=== PATIENT | female | born 1980 | race American Indian/Alaskan Native ===

== ENCOUNTER 2018-07-11 10:31 | Outpatient (CLI) | payer BC ==
--- NOTE | 2018-07-12 10:08 | Mammography Report ---
BILATERAL DIGITAL SCREENING MAMMOGRAM with CAD: 07/11/18 10:31:00 CLINICAL: Routine screening.Previous left benign surgical biopsy. COMPARISON:None available. FINDINGS: The breasts are almost entirely fatty.Mild left inner posterior benign postsurgical scar with dystrophic calcifications. No mass, architectural distortion or suspicious calcifications. IMPRESSION: No mammographic evidence of malignancy. BI-RADS CATEGORY: 2 - - Benign RECOMMENDATION: Routine mammographic screening in one year. COMMENT: Patient follow-up letters are generated by our [employer] application.
== END 2018-07-11 10:32 | disposition home or self-care (01) ==
LOC: MAMMO 10:31
DX: Z12.31 Encounter for screening mammogram for malignant neoplasm of breast (principal)
CPT/HCPCS: 77067

== ENCOUNTER 2018-10-12 15:13 | Outpatient (CLI) | payer BC ==
--- NOTE | 2018-10-12 16:24 | XRay Report ---
FINAL REPORT PROCEDURE: XR KNEE 3V LT TECHNIQUE: AP, oblique and lateral views were obtained. HISTORY: LEFT KNEE PAIN COMPARISON: No prior studies are available for comparison. FINDINGS: No fracture or dislocation is visualized. Minimal joint fluid visualized. No significant effusion is seen. Bone density appears normal. Joint spaces are well maintained. No radiopaque foreign bodies are seen IMPRESSION: No acute abnormalities are identified
== END 2018-10-12 15:14 | disposition home or self-care (01) ==
LOC: XRAY 15:13
DX: M25.562 Pain in left knee (principal)

== ENCOUNTER 2019-01-05 09:05 | Outpatient (CLI) | payer BC ==
[2019-01-05 09:32] LABS: Basophils # (Auto) 0.1 K/mm3 (0.0-0.1); Basophils % (Auto) 0.8 % (0.0-1.8); Eosinophils # (Auto) 0.4 K/mm3 (0.0-0.4); Eosinophils % (Auto) 5.3 % (0.0-4.3); Hematocrit 39.6 % (30.3-42.9); Lymphocytes # (Auto) 2.4 K/mm3 (1.2-5.4); Lymphocytes % (Auto) 35.8 % (13.4-35.0); Mean Corpuscular HGB Conc 33 % (30-34); Mean Corpuscular Volume 90 fl (79-97); Monocytes # (Auto) 0.9 K/mm3 (0.0-0.8); Monocytes % (Auto) 13.3 % (0.0-7.3); Platelet Count 416 K/mm3 (140-440); Red Blood Count 4.42 M/mm3 (3.65-5.03); Red Cell Distribution Width 14.7 % (13.2-15.2)
[2019-01-05 09:47] LABS: Alanine Aminotransferase 9 units/L (7-56); Albumin 3.6 g/dL (3.9-5); BUN/Creatinine Ratio 13; Blood Urea Nitrogen 8 mg/dL (7-17); Calcium 8.4 mg/dL (8.4-10.2); Hemolysis Index 2
== END 2019-01-05 09:06 | disposition home or self-care (01) ==
LOC: LAB 09:05
PROVIDERS: ATTEND Internal Medicine Hematology & Oncology
DX: Z85.72 Personal history of non-Hodgkin lymphomas (principal); I10 Essential (primary) hypertension
CPT/HCPCS: 36415; 80053; 85025

== ENCOUNTER 2019-02-21 10:42 | Outpatient (CLI) | payer BC ==
--- NOTE | 2019-02-21 16:08 | Magnetic Resonance Report ---
MRI LEFT KNEE WITHOUT CONTRAST: 02/21/19 CLINICAL: Knee pain. TECHNIQUE: Sagittal proton density fat and gradient T2*, sagittal proton density, coronal T1 and sagittal, coronal and axial proton density fat-sat sequences on a 1.5 Yi magnet. FINDINGS: The menisci are intact. The cruciate ligaments and collateral ligaments are intact. A small knee joint effusion with fluid in the suprapatellar bursa in the medial and lateral joints. There is slightly greater fluid in the lateral joint and a fluid collection of the lateral anterior thigh communicates with the suprapatellar bursa. It measures at least 6 x 2.7 x 1.0 cm. No popliteal cyst. Marrow edema of the inferior patella with hypointensity on T1 and hyperintensity on T2 fat-sat. No fracture. The patellar cartilage is intact and measures 4.4 mm maximum thickness. Intact patellar tendon and retinaculum. The medial and lateral femoral cartilage are intact. The posterolateral corner structures including the popliteus tendon are intact. A medullary lesion of the proximal fibula measures approximately 2.0 x 1.3 x 1.0 cm and 2 similar lesions of the distal femur measure 1.4 x 0.7 x 1.0 cm and 0.3 x 0.3 x 0.2 cm. The larger lesion is in the midline distal femur and a smaller lesion is medial in the supracondylar area. The muscles have normal signal. IMPRESSION: 1. Normal patellar cartilage with no evidence of chondromalacia patellae. 2. No meniscal or ligamentous injury. 3. Knee joint effusion and a larger soft tissue fluid collection of the lateral distal thigh. 4. Benign enchondromas of the distal femur and proximal fibula. 5. Suspect bone contusion of the inferior patella.
== END 2019-02-21 10:43 | disposition home or self-care (01) ==
LOC: MRI 10:42
PROVIDERS: ATTEND Orthopaedic Surgery
DX: M25.462 Effusion, left knee (principal); I10 Essential (primary) hypertension; M19.90 Unspecified osteoarthritis, unspecified site
CPT/HCPCS: 73721

== ENCOUNTER 2019-07-12 14:46 | Outpatient (CLI) | payer BC ==
--- NOTE | 2019-07-12 16:32 | Mammography Report ---
DIGITAL SCREENING MAMMOGRAM WITH CAD, 07/12/2019 INDICATION: Routine screening mammography. TECHNIQUE: Digital bilateral 2D mammography was obtained in the craniocaudal and mediolateral obliq ue projections. This examination was interpreted with the benefit of Computer-Aided Detection analysi s. COMPARISON: 07/11/2018 FINDINGS: Breast Density: The breasts are almost entirely fatty. There is no evidence of dominant mass, suspicious calcifications or architectural distortion in eithe r breast. Left inner posterior partially calcified postsurgical scar. IMPRESSION: No mammographic evidence of malignancy. Follow up recommendation: Routine yearly BI-RADS Category 2: Benign. A "normal" or negative report should not discourage follow up or biopsy of a clinically significant f inding. A written summary of these findings will be mailed to the patient. The patient will be entered into a mammography reporting system which will generate a reminder letter for the patient's next appointmen t at the appropriate interval. The [employer] recommends yearly mammograms starting at age 40 and continuing as l desmond as a woman is in good health. Breast MRI is recommended for women with an approximate 20-25% or greater lifetime risk of breast cancer, including women with a strong family history of breast or ova lisa cancer or who have been treated for Hodgkin's disease. Signer Name: Humberto Causey MD Signed: 07/12/2019 4:27 PM Workstation Name: [id number]
== END 2019-07-12 14:47 | disposition home or self-care (01) ==
LOC: MAMMO 14:46
PROVIDERS: ATTEND Physician Assistant Medical
DX: Z12.31 Encounter for screening mammogram for malignant neoplasm of breast (principal); I10 Essential (primary) hypertension; M19.90 Unspecified osteoarthritis, unspecified site
CPT/HCPCS: 77067

== ENCOUNTER 2019-10-26 13:19 | Outpatient (CLI) | payer BC ==
[2019-10-26 13:47] LABS: Hematocrit 39.6 % (30.3-42.9); Hemoglobin 13.1 gm/dl (10.1-14.3); Mean Corpuscular HGB Conc 33 % (30-34); Mean Corpuscular Volume 88 fl (79-97); Platelet Count 510 K/mm3 (140-440); Red Blood Count 4.48 M/mm3 (3.65-5.03); Red Cell Distribution Width 13.9 % (13.2-15.2)
[2019-10-26 14:12] LABS: Alanine Aminotransferase 11 units/L (7-56); Albumin 3.7 g/dL (3.9-5); BUN/Creatinine Ratio 13; Blood Urea Nitrogen 8 mg/dL (7-17); Calcium 8.7 mg/dL (8.4-10.2); Hemolysis Index 4
[2019-10-29 09:03] LABS: Chol/HDL Ratio 3.66 %
== END 2019-10-26 13:20 | disposition home or self-care (01) ==
LOC: LAB 13:19
DX: Z00.00 Encounter for general adult medical examination without abnormal findings (principal); Z11.4 Encounter for screening for human immunodeficiency virus [HIV]; D51.9 Vitamin B12 deficiency anemia, unspecified; E55.9 Vitamin D deficiency, unspecified; R73.09 Other abnormal glucose; E03.9 Hypothyroidism, unspecified
CPT/HCPCS: 36415; 80053; 82306; 82607; 84443; 85027; 86592

== ENCOUNTER 2020-03-26 08:57 | Outpatient (CLI) | payer BC ==
[2020-03-26 09:19] LABS: Hematocrit 41.5 % (30.3-42.9); Hemoglobin 13.6 gm/dl (10.1-14.3); Mean Corpuscular HGB Conc 33 % (30-34); Mean Corpuscular Volume 89 fl (79-97); Platelet Count 416 K/mm3 (140-440); Red Blood Count 4.65 M/mm3 (3.65-5.03); Red Cell Distribution Width 14.2 % (13.2-15.2)
[2020-03-26 09:43] LABS: Alanine Aminotransferase 13 units/L (7-56); BUN/Creatinine Ratio 14; Blood Urea Nitrogen 11 mg/dL (7-17); Calcium 9.1 mg/dL (8.4-10.2); Chol/HDL Ratio 3.35 %; HDL Cholesterol 60 mg/dL (40-59); Hemolysis Index 2; LDL Cholesterol,Direct 145 mg/dL (50-130)
[2020-03-30 13:09] LABS: Vitamin D, 25-OH, D2 <4 ng/mL
== END 2020-03-26 08:58 | disposition home or self-care (01) ==
LOC: LAB 08:57
PROVIDERS: ATTEND Internal Medicine
DX: Z00.00 Encounter for general adult medical examination without abnormal findings (principal); I10 Essential (primary) hypertension; R42 Dizziness and giddiness; R73.09 Other abnormal glucose
CPT/HCPCS: 36415; 80053; 80061; 82306; 82607; 83036; 84443; 85027

== ENCOUNTER 2020-06-04 14:54 | Outpatient (CLI) | payer BC ==
--- NOTE | 2020-06-04 16:17 | XRay Report ---
LUMBOSACRAL SPINE 2 VIEWS INDICATION: low back pain. COMPARISON: None. IMPRESSION: Normal alignment. No significant discogenic DJD or facet arthropathy. No acute osseous or soft tissue abnormality. Signer Name: Devang Harrison Jr, MD Signed: 06/04/2020 4:12 PM Workstation Name: [id number]
--- NOTE | 2020-06-04 16:17 | XRay Report ---
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 COMPARISON: None. IMPRESSION: There is straightening of the normal lordosis which could be positional or secondary to muscular spasm. There is normal alignment otherwise. Mild degenerative disc narrowing and anterior sp urring is identified at C4-5, C5-6 and C6-7. The facet joints are unremarkable. No acute osseous or soft tissue abnormality. Signer Name: Devang Harrison Jr, MD Signed: 06/04/2020 4:13 PM Workstation Name: [id number]
== END 2020-06-04 14:55 | disposition home or self-care (01) ==
LOC: XRAY 14:54
PROVIDERS: ATTEND Chiropractor
DX: M47.812 Spondylosis without myelopathy or radiculopathy, cervical region (principal); M48.02 Spinal stenosis, cervical region; M46.02 Spinal enthesopathy, cervical region; M99.01 Segmental and somatic dysfunction of cervical region
CPT/HCPCS: 72040; 72100

== ENCOUNTER 2020-07-14 14:24 | Outpatient (CLI) | payer BC ==
--- NOTE | 2020-07-15 10:10 | Mammography Report ---
DIGITAL SCREENING MAMMOGRAM WITH CAD, 07/15/2020 INDICATION: Routine screening mammography. TECHNIQUE: Digital bilateral 2D mammography was obtained in the craniocaudal and mediolateral obliq ue projections. This examination was interpreted with the benefit of Computer-Aided Detection analysi s. COMPARISON: 07/12/2019, 07/11/2018 FINDINGS: Breast Density: The breasts are almost entirely fatty. There is no evidence of dominant mass, suspicious calcifications or architectural distortion in eithe r breast. IMPRESSION: Follow up recommendation: Routine yearly BI-RADS Category 1: Negative. A "normal" or negative report should not discourage follow up or biopsy of a clinically significant f inding. A written summary of these findings will be mailed to the patient. The patient will be entered into a mammography reporting system which will generate a reminder letter for the patient's next appointmen t at the appropriate interval. The [employer] recommends yearly mammograms starting at age 40 and continuing as l desmond as a woman is in good health. Breast MRI is recommended for women with an approximate 20-25% or greater lifetime risk of breast cancer, including women with a strong family history of breast or ova lisa cancer or who have been treated for Hodgkin's disease. Signer Name: Landen Raya MD Signed: 07/15/2020 10:05 AM Workstation Name: [id number]
== END 2020-07-14 14:25 | disposition home or self-care (01) ==
LOC: MAMMO 14:24
PROVIDERS: ATTEND Internal Medicine
DX: Z12.31 Encounter for screening mammogram for malignant neoplasm of breast (principal)
CPT/HCPCS: 77067

== ENCOUNTER 2020-09-18 09:43 | Outpatient (CLI) | payer BC ==
[2020-09-18 10:20] LABS: Basophils # (Auto) 0.1 K/mm3 (0.0-0.1); Basophils % (Auto) 0.8 % (0.0-1.8); Eosinophils # (Auto) 0.4 K/mm3 (0.0-0.4); Eosinophils % (Auto) 4.8 % (0.0-4.3); Hematocrit 41.6 % (30.3-42.9); Hemoglobin 14.1 gm/dl (10.1-14.3); Lymphocytes # (Auto) 2.4 K/mm3 (1.2-5.4); Lymphocytes % (Auto) 32.3 % (13.4-35.0); Mean Corpuscular HGB Conc 34 % (30-34); Mean Corpuscular Volume 90 fl (79-97); Monocytes # (Auto) 0.8 K/mm3 (0.0-0.8); Monocytes % (Auto) 10.5 % (0.0-7.3); Platelet Count 441 K/mm3 (140-440); Red Cell Distribution Width 14.5 % (13.2-15.2)
[2020-09-18 10:36] LABS: Alanine Aminotransferase 13 units/L (7-56); Albumin 3.8 g/dL (3.9-5); BUN/Creatinine Ratio 13; Blood Urea Nitrogen 10 mg/dL (7-17); Calcium 8.8 mg/dL (8.4-10.2); Chol/HDL Ratio 3.29 %; HDL Cholesterol 57 mg/dL (40-59); Hemolysis Index 2; LDL Cholesterol,Direct 128 mg/dL (50-130)
[2020-09-22 13:50] LABS: Vitamin D, 25-OH, D2 <4 ng/mL
== END 2020-09-18 09:44 | disposition home or self-care (01) ==
LOC: LAB 09:43
PROVIDERS: ATTEND Internal Medicine
DX: Z00.00 Encounter for general adult medical examination without abnormal findings (principal); I10 Essential (primary) hypertension
CPT/HCPCS: 36415; 80053; 80061; 82306; 82607; 82747; 83036; 85025

== ENCOUNTER 2020-12-18 09:46 | Outpatient (CLI) | payer BC ==
[2020-12-18 10:09] LABS: Hematocrit 41.1 % (30.3-42.9); Hemoglobin 13.8 gm/dl (10.1-14.3); Mean Corpuscular HGB Conc 34 % (30-34); Mean Corpuscular Volume 90 fl (79-97); Platelet Count 445 K/mm3 (140-440); Red Blood Count 4.58 M/mm3 (3.65-5.03); Red Cell Distribution Width 13.9 % (13.2-15.2)
[2020-12-18 10:30] LABS: Alanine Aminotransferase 11 units/L (7-56); Albumin 3.8 g/dL (3.9-5); Blood Urea Nitrogen 9 mg/dL (7-17); Calcium 9.3 mg/dL (8.4-10.2); Chol/HDL Ratio 3.38 %; HDL Cholesterol 55 mg/dL (40-59); Hemolysis Index 4; LDL Cholesterol,Direct 132 mg/dL (50-130)
[2020-12-18 10:32] LABS: BUN/Creatinine Ratio 13
== END 2020-12-18 09:47 | disposition home or self-care (01) ==
LOC: LAB 09:46
PROVIDERS: ATTEND Internal Medicine
DX: Z11.4 Encounter for screening for human immunodeficiency virus [HIV] (principal); I10 Essential (primary) hypertension; E55.9 Vitamin D deficiency, unspecified; E66.01 Morbid (severe) obesity due to excess calories; R73.09 Other abnormal glucose
CPT/HCPCS: 36415; 80053; 80061; 82306; 83036; 85027; 86689

== ENCOUNTER 2021-01-15 10:27 | Outpatient (CLI) | payer BC ==
--- NOTE | 2021-01-15 15:13 | PET Report ---
PET CT Indication: Non-Hodgkin lymphoma. Increased swelling and fullness of the neck. Technique: A total of 13.403 mCi F-18 FDG injected IV per protocol into the right arm at 11:44 AM wit h a scan time of 12:31 PM on the same day. CT was utilized for dose attenuation and anatomic localiza tion. The patient's weight is 298 pounds. The fasting blood glucose measured 44 mg/dL.. The scan occu rred from the skull base to the upper thighs. Comparison: No pertinent prior exams available Findings: No abnormal radiotracer uptake is identified within the head/neck, chest, abdomen or pelvis . There is expected GI and excretion of radiotracer. No abnormal osseous uptake is appreciated. Th ere is a multicystic lesion arising from the right ovary. The largest cyst measures about 3.8 cm in d iameter but does not appear to demonstrate any increased hypermetabolic uptake. Borderline cardiomega ly. IMPRESSION: No hypermetabolic activity identified, as above. Abnormal multicystic lesion identified a rising from the region of the right adnexa measuring up to 3.8 cm in diameter. Recommend dedicated pe lvic ultrasound with Doppler for further evaluation. Signer Name: Keven Levi MD Signed: 01/15/2021 3:09 PM Workstation Name: [id number]
== END 2021-01-15 10:28 | disposition home or self-care (01) ==
LOC: PET 10:27
PROVIDERS: ATTEND Internal Medicine Hematology & Oncology
DX: N83.291 Other ovarian cyst, right side (principal); I51.7 Cardiomegaly; Z85.72 Personal history of non-Hodgkin lymphomas
CPT/HCPCS: 78815; 82962; A9552

== ENCOUNTER 2021-01-30 10:05 | Outpatient (CLI) | payer BC ==
--- NOTE | 2021-01-30 13:26 | Ultrasound Report ---
ULTRASOUND PELVIS INDICATION / CLINICAL INFORMATION: PELVIC PAIN. TECHNIQUE: Transabdominal. Transvaginal Duplex Color Doppler used: Yes. COMPARISON: PET scan 01/15/2021. FINDINGS: UTERUS: Prior hysterectomy. RIGHT ADNEXA: The right ovary measures 5.4 x 5.9 x 3.5 cm. There is a 4.8 cm cystic lesion within the right ovary. Not well evaluated due to overlying bowel gas. Normal color Doppler blood flow. LEFT ADNEXA: The left ovary is obscured by overlying bowel gas. No significant abnormality of the lef t adnexa. URINARY BLADDER: No significant abnormality. FREE FLUID: None. ADDITIONAL FINDINGS: None. IMPRESSION: 1. Right ovarian cyst, poorly visualized on this examination secondary to technical difficulty. Consi lala further evaluation, as warranted. Scribed by: Norah Allen RDMS, RVT Scribed: 01/30/2021 12:05 PM Signer Name: Naldo Carballo MD Signed: 01/30/2021 1:21 PM Workstation Name: [id number]
== END 2021-01-30 10:06 | disposition home or self-care (01) ==
LOC: US 10:05
PROVIDERS: ATTEND Obstetrics & Gynecology
DX: N83.291 Other ovarian cyst, right side (principal)
CPT/HCPCS: 76830; 76856

== ENCOUNTER 2021-09-07 11:20 | Outpatient (CLI) | payer OTHER ==
--- NOTE | 2021-09-08 10:10 | Mammography Report ---
BILATERAL DIGITAL SCREENING MAMMOGRAM WITH CAD WITH TOMOSYNTHESIS HISTORY: Screening mammogram. TECHNIQUE: Routine digital mammographic imaging performed. This examination was interpreted with denisse zayas benefit of Computer-aided Detection analysis. Tomosynthesis images were acquired and reviewed. COMPARISON: 07/14/2020, 07/12/2019, 07/11/2018. FINDINGS: Breast Density: scattered fibroglandular appearance of the breast tissue. Digital CC and MLO views demonstrate no mammographic evidence of malignancy. Small grouping of calci fications in the right breast are stable, felt to be dermal given their far superior location on the tomosynthesis images. Coarse hyperdensity within the posterior left breast on the MLO view is stable compared to multiple prior years. This may represent site of prior port. IMPRESSION: No mammographic evidence of malignancy. If the clinical examination remains stable, recommend bilate ral mammogram in approximately one year. BIRADS 2: Benign Finding(s). FURTHER INFORMATION: According to the [employer], yearly mammograms are recommend ed starting at age 40 and continuing as long as a woman is in good health. Clinical Breast Exams shou ld be part of a periodic health exam-about every 3 years for women in their 20s and 30s and every yea r for women 40 and over. Breast self exam is an option for women starting in their 20s. Any breast ch melania noted on a breast self exam should be reported promptly to the patient's healthcare provider. [place] MRI is recommended for women with an approximately 20-25% or greater lifetime risk of breast can cer, including women with a strong family history of breast or ovarian cancer and women who have been treated for Hodgkin's disease. A negative Mammography report should not discourage follow up or biopsy of a clinically significant f inding and/or abnormality. Dense breast tissue may obscure small neoplasms. The patient will be entered into a reminder system with a target due date for the next screening mamm ogram. Signer Name: Jevon Vaughn MD Signed: 09/08/2021 10:06 AM Workstation Name: [id number]
== END 2021-09-07 11:21 | disposition home or self-care (01) ==
LOC: SPVWC 11:20
PROVIDERS: ATTEND Internal Medicine
DX: Z12.31 Encounter for screening mammogram for malignant neoplasm of breast (principal); N64.89 Other specified disorders of breast
CPT/HCPCS: 77063; 77067

== ENCOUNTER 2022-06-03 10:08 | Outpatient (CLI) | payer OTHER ==
--- NOTE | 2022-06-03 15:56 | Fluoroscopy Report ---
UPPER GI HISTORY: E66.01. TECHNIQUE: Single and double contrast barium technique utilized to evaluate the esophagus, stomach, and duodenal C-loop. FINDINGS: To begin the exam, swallowing was evaluated in the lateral position under direct fluorosco py. Swallowing was normal. No mucosal irregularity, mass, mass effect, or critical stenosis. There were no abnormal tertiary c ontractions as seen with dysmotility. No gastroesophageal reflux. IMPRESSION: Unremarkable exam. Fluoroscopic time: 0.6 minutes Number of fluoroscopic images: 11 Signer Name: Devang Harrison Jr, MD Signed: 06/03/2022 3:51 PM Workstation Name: [id number]
== END 2022-06-03 10:09 | disposition home or self-care (01) ==
LOC: FLUORO 10:08
DX: Z01.818 Encounter for other preprocedural examination (principal); I10 Essential (primary) hypertension; E66.01 Morbid (severe) obesity due to excess calories; Z68.42 Body mass index [BMI] 45.0-49.9, adult
CPT/HCPCS: 74246